=== PATIENT | male | born 1995 | race Two or more races ===

== ENCOUNTER 2022-09-02 21:32 | Emergency (ER) | payer SELFPAY ==
[~2022-09-02] VITALS: Ht 180.3 cm; Wt 72.1 kg
[2022-09-02] MEDS ORDERED: IBUPROFEN 600MG TABLET PO ONE (23:00)
[2022-09-02] MEDS ORDERED: TETANUS, DIPHTHERIA, PERTUSSIS VAC/PF 0.5ML (>10YR OLD) IM ONE (23:15)
[2022-09-02] MEDS ORDERED: LIDOCAINE HCL/PF 1% 10 MG/ML 5ML VIAL INFIL ONE (23:15)
[2022-09-02] MEDS ORDERED: BACITRACIN ZINC OINT UDPKT TOP ONE (23:15)
[2022-09-03] MEDS ORDERED: AMOXICILLIN/POTASSIUM CLAVULANATE 875/125MG TAB PO ONE (00:30)
[2022-09-03] MEDS ORDERED: LIDOCAINE HCL/PF 1% 10 MG/ML 5ML VIAL INFIL NR (02:15)
[2022-09-03] MEDS ORDERED: ACETAMINOPHEN WITH CODEINE 300/30MG TABLET PO NR (03:50)
[2022-09-03] MEDS ORDERED: IBUP-2029 PO (04:00)
[2022-09-03] MEDS ORDERED: AMOX1TAB16 PO (04:00)
[2022-09-03] MEDS ORDERED: T3 PO (04:00)
[2022-09-03 04:55] VITALS: BP 132/74
== END 2022-09-03 05:09 | disposition home or self-care (01) ==
LOC: ER 21:32
DX: S01.551A Open bite of lip, initial encounter (principal); W54.0XXA Bitten by dog, initial encounter; Y93.89 Activity, other specified; Y92.89 Other specified places as the place of occurrence of the external cause; Y99.8 Other external cause status
CPT/HCPCS: 99284; J3490; Z7610